=== PATIENT | female | born 1955 | race African-American/Black ===

== ENCOUNTER 2019-03-03 03:27 | Emergency (ER) | payer MEDICARE ==
[~2019-03-03] VITALS: Ht 160 cm; Wt 68.5 kg
[~2019-03-03 03:27] MED LIST: ACET500T68 PO; ALBU2.5V8 INH; AMLO5TAB10 PO; ASPI-612 PO; BUDE0.5A NEB; CLON0.1T PO; DOCU-153 PO; ENOX40DI3 SQ; HYDR-2868 PO; HYDR12.58 PO; IPRA3AMP29 NEB; LISI10TA2 PO; LORA10CA PO; LOSA-73 PO; METO-239 PO; Nicotine 21MG TD; ONDA4TAB11 PO; ONDA4TAB12 PO; POLY17PO29 PO; PRED50TA PO
--- NOTE | 2019-03-03 03:39 | PHYS DOC ---
Past Medical History Past Medical History: Anxiety, COPD, Hypertension Additional Past Medical Histor: PTSD Past Surgical History: No Surgical History Alcohol Use: None Drug Use: None PERC Rule for PE PERC Rule for PE Response (Comments) Value Age > 50: Yes 1 HR > 100: Yes 1 Sa02 on room air <95%: No 0 Unilateral leg swelling: No 0 Hemoptysis: No 0 Recent surgery or trauma: No 0 Prior PE or DVT: No 0 Hormone use: No 0 Total 2 Adult General Chief Complaint Chief Complaint: WEAKNESS/GENERALIZED HPI HPI Patient is a 64 year old female who presents to the ER with complaints of generalized weakness and not feeling well. Patient was recently dc from [facility] 02/17 and dc from [facility] 03/02. Patient underlying history of a nxiety. She states she awoke from sleep/dream with SOB unable to calm herself down. Patient denies chest pain however complains of SOB. She denies fever, nausea, vomiting, headache or visual changes. BP in the 200's/111 at this time. Nothing makes her symptoms better, nothing makes her symptoms worse. EKG - sinus tachycardia. Records reviewed from recent hospitalization: Ms Montelongo is a 64 yo female w/ PMHx COPD, anxiety, HTN who p/w blood pressure 220s over 110s at the snf. She was found with elevated troponin of 0.051 and potassium of 2.8 and very anxious as well as confused. EKG revealed sinus tachycardia. CXR concerning for right upper lung nodular opacity. She had a recent admission for COPD and pneumonia she also had hypertensive urgency on that admission she did have improvement with antihypertensive she had a renal artery ultrasound that showed no renal artery stenosis she also a 24- hour metanephrines within the reference range. ACTH was low and cortisol was normal. Discharged on 02/17/19 to SNF for rehabilitation after recent admission for COPD exacerbation. Seen by cardiology, recommended monitoring troponin, which decreased. Pulmonology consulted as well, CT chest ordered to better elucidate RUL infiltrate on CXR: 1. No correlate for the questioned abnormality at the right upper lobe on the same day radiographs. No lobar infiltrate or nodule is seen at this location. 2. Progression of mostly linear opacities within the bibasilar lower lobes and right middle lobe extending to the pleural margin most compatible with atelectasis. 3. Emphysematous changes of the lungs. No suspicious pulmonary nodule is seen however there is a 2.5 mm nodule within the far inferior right upper lobe approaching the fissure. This does not meet size criteria for dedicated follow- up however if there are risk factors for lung malignancy, optional CT in 12 months could be performed. 4. No interval change in the size or number of mediastinal and hilar lymph node s. Review of Systems Review of Systems Constitutional: Denies fever or chills [] Eyes: Denies change in visual acuity, redness, or eye pain [] HENT: Denies nasal congestion or sore throat [] Respiratory: SOB Cardiovascular: No additional information not addressed in HPI [] GI: Denies abdominal pain, nausea, vomiting, bloody stools or diarrhea [] : Denies dysuria or hematuria [] Musculoskeletal: Denies back pain or joint pain [] Integument: Denies rash or skin lesions [] Neurologic: Denies headache, focal weakness or sensory changes [] All other systems were reviewed and found to be within normal limits, except as documented in this note. Current Medications Current Medications Current Medications Medications (Trade) Dose Ordered Sig/Leno Start Time Stop Time Status Last Admin Dose Admin Labetalol HCl (Normodyne Iv Push) 10 mg 1X ONCE 03/03/19 04:15 03/03/19 04:16 DC 03/03/19 04:05 10 MG Sodium Chloride 1,000 ml @ 1,000 mls/hr 1X ONCE 03/03/19 04:00 03/03/19 05:00 DC 03/03/19 04:04 1,000 MLS/HR Allergies Allergies Allergies Coded Allergies Type Severity Reaction Last Updated Verified Penicillins Allergy Intermediate Swelling 11/09/15 Yes aspirin Allergy Intermediate Swelling 11/09/15 Yes azithromycin Allergy Intermediate Swelling 11/09/15 Yes Sulfa (Sulfonamide Antibiotics) Adverse Reaction Intermediate Swelling 11/09/15 Yes amoxicillin Adverse Reaction Intermediate Swelling 11/09/15 Yes Physical Exam Physical Exam Constitutional: Well developed, well nourished, no acute distress, non-toxic appearance. [] HENT: Normocephalic, atraumatic, bilateral external ears normal, oropharynx moist, no oral exudates, nose normal. [] Eyes: PERRLA, EOMI, conjunctiva normal, no discharge. [] Cardiovascular: tachycardia, no murmur [] Lungs & Thorax: Bilateral breath sounds clear to auscultation [] Abdomen: Bowel sounds normal, soft, no tenderness, no masses, no pulsatile masses. [] Skin: Warm, dry, no erythema, no rash. [] Back: No tenderness, no CVA tenderness. [] Extremities: No tenderness, no edema. [] Neurologic: Alert and oriented X 3, no focal deficits noted. [] Psychologic: Affect normal, judgement normal, mood normal. [] Current Patient Data Vital Signs Vital Signs Date Time Temp Pulse Resp B/P (MAP) Pulse Ox O2 Delivery O2 Flow Rate FiO2 03/03/19 04:18 90 10 95 03/03/19 04:05 192/100 03/03/19 03:30 98.3 Room Air 98.3 Lab Values Laboratory Tests Test 03/03/19 03:54 03/03/19 04:45 White Blood Count 5.5 x10^3/uL (4.0-11.0) Red Blood Count 6.03 x10^6/uL (3.50-5.40) H Hemoglobin 17.0 g/dL (12.0-15.5) H Hematocrit 52.0 % (36.0-47.0) H Mean Corpuscular Volume 86 fL (79-100) Mean Corpuscular Hemoglobin 28 pg (25-35) Mean Corpuscular Hemoglobin Concent 33 g/dL (31-37) Red Cell Distribution Width 14.8 % (11.5-14.5) H Platelet Count 324 x10^3/uL (140-400) Neutrophils (%) (Auto) 65 % (31-73) Lymphocytes (%) (Auto) 25 % (24-48) Monocytes (%) (Auto) 9 % (0-9) Eosinophils (%) (Auto) 1 % (0-3) Basophils (%) (Auto) 1 % (0-3) Neutrophils # (Auto) 3.6 x10^3/uL (1.8-7.7) Lymphocytes # (Auto) 1.4 x10^3/uL (1.0-4.8) Monocytes # (Auto) 0.5 x10^3/uL (0.0-1.1) Eosinophils # (Auto) 0.0 x10^3/uL (0.0-0.7) Basophils # (Auto) 0.0 x10^3/uL (0.0-0.2) D-Dimer (Tania) < 0.27 ug/mlFEU Sodium Level 138 mmol/L (136-145) Potassium Level 3.5 mmol/L (3.5-5.1) Chloride Level 100 mmol/L (98-107) Carbon Dioxide Level 24 mmol/L (21-32) Anion Gap 14 (6-14) Blood Urea Nitrogen 5 mg/dL (7-20) L Creatinine 1.0 mg/dL (0.6-1.0) Estimated GFR (Cockcroft-Gault) 68.0 BUN/Creatinine Ratio 5 (6-20) L Glucose Level 123 mg/dL (70-99) H Lactic Acid Level 1.2 mmol/L (0.4-2.0) Calcium Level 10.0 mg/dL (8.5-10.1) Magnesium Level 1.9 mg/dL (1.8-2.4) Total Bilirubin 1.5 mg/dL (0.2-1.0) H Aspartate Amino Transferase (AST) 37 U/L (15-37) Alanine Aminotransferase (ALT) 47 U/L (14-59) Alkaline Phosphatase 94 U/L (46-116) Total Protein 8.8 g/dL (6.4-8.2) H Albumin 3.8 g/dL (3.4-5.0) Albumin/Globulin Ratio 0.8 (1.0-1.7) L Urine Collection Type Unknown Urine Color Yellow Urine Clarity Clear Urine pH 7.0 Urine Specific [place] 1.010 Urine Protein Negative mg/dL (NEG-TRACE) Urine Glucose (UA) Negative mg/dL (NEG) Urine Ketones (Stick) 15 mg/dL (NEG) Urine Blood Negative (NEG) Urine Nitrite Negative (NEG) Urine Bilirubin Negative (NEG) Urine Urobilinogen Dipstick 1.0 mg/dL (0.2 mg/dL) Urine Leukocyte Esterase Negative (NEG) Urine RBC 0 /HPF (0-2) Urine WBC Occ /HPF (0-4) Urine Squamous Epithelial Cells Few /LPF Urine Bacteria 0 /HPF (0-FEW) Urine Mucus Slight /LPF Laboratory Tests 03/03/19 03:54 Laboratory Tests 03/03/19 03:54 EKG EKG EKG reviewed - tachycardia, normal axis, no evidence of STEMI appreciated, urgent EKG 2/2 rate[] Radiology/Procedures Radiology/Procedures wet read 0446 - Chest xray without evidence of acute consolidation appreciated, no pleural effusion[] Course & Med Decision Making Course & Med Decision Making Pertinent Labs and Imaging studies reviewed. (See chart for details) []Patient is a 64 year old female who presents to the ER with complaints of generalized weakness and not feeling well. Patient was recently dc from [facility] 02/17 and dc from [facility] 03/02. Patient underlying history of anxiety. She states she awoke from sleep/dream with SOB unable to calm herself down. Patient denies chest pain however complains of SOB. She denies fever, nausea, vomiting, headache or visual changes. BP in the 200's/111 at this time. Nothing makes her symptoms better, nothing makes her symptoms worse. EKG - sinus tachycardia. Labs/imaging reveiwed Lactic acid 1.2, ddimer < 0.27 CXR without acute process Patient improved after 10mg Labetalol IV x 1 DC home Reviewed from most recent hospital stay Ms Montelongo is a 64 yo female w/ PMHx COPD, anxiety, HTN who p/w blood pressure 220s over 110s at the snf. She was found with elevated troponin of 0.051 and potassium of 2.8 and very anxious as well as confused. EKG revealed sinus tachycardia. CXR concerning for right upper lung nodular opacity. She had a recent admission for COPD and pneumonia she also had hypertensive urgency on that admission she did have improvement with antihypertensive she had a renal artery ultrasound that showed no renal artery stenosis she also a 24- hour metanephrines within the reference range. ACTH was low and cortisol was normal. Discharged on 02/17/19 to SNF for rehabilitation after recent admission for COPD exacerbation. Seen by cardiology, recommended monitoring troponin, which decreased. Pulmonology consulted as well, CT chest ordered to better elucidate RUL infiltrate on CXR: Dragon Disclaimer Dragon Disclaimer This electronic medical record was generated, in whole or in part, using a voice recognition dictation system. Departure Departure Impression: Primary Impression: Accelerated hypertension Additional Impression: Anxiety Disposition: HOME, SELF-CARE Condition: IMPROVED Referrals: NO PCP (PCP) Patient Instructions: Anxiety and Panic Attacks, [id number], Hypertension Additional Instructions: Recommend follow up with PCP 3 - 5 days Return to the ER with worsening symptoms, intractable pain, fever, altered mental status Tylenol/Motrin as needed for pain Recommend filling prescriptions from recent hospital stay Problem Qualifiers DARIA HOLT MD Mar 03, 2019 03:39
[2019-03-03] MEDS ORDERED: IV NORMAL SALINE 1000ML BAG 1,000 ML IV ONE (04:00)
[2019-03-03 04:06] LABS: BASO % 1 % (0-3); EOS % 1 % (0-3); LYMPH # 1.4 x10^3/uL (1.0-4.8); LYMPH % 25 % (24-48); MEAN CORPUSCULAR HEMOGLOBIN 28 pg (25-35); MEAN CORPUSCULAR HGB CONC 33 g/dL (31-37); MEAN CORPUSCULAR VOLUME 86 fL (79-100); MONO # 0.5 x10^3/uL (0.0-1.1); MONO % 9 % (0-9); NEUT # 3.6 x10^3/uL (1.8-7.7); NEUT % 65 % (31-73); PLATELET COUNT 324 x10^3/uL (140-400); RED BLOOD COUNT 6.03 x10^6/uL (3.50-5.40); RED CELL DISTRIBUTION WIDTH 14.8 % (11.5-14.5); WHITE BLOOD COUNT 5.5 x10^3/uL (4.0-11.0)
[2019-03-03 04:10] LABS: POTASSIUM 3.5 mmol/L (3.5-5.1)
[2019-03-03 04:15] LABS: ALBUMIN 3.8 g/dL (3.4-5.0); ALBUMIN/GLOBULIN RATIO 0.8 (1.0-1.7); MAGNESIUM 1.9 mg/dL (1.8-2.4); TOTAL BILIRUBIN 1.5 mg/dL (0.2-1.0); TOTAL PROTEIN 8.8 g/dL (6.4-8.2)
[2019-03-03] MEDS ORDERED: LABETALOL 20 MG/4 ML DISP.SYRIN. IVP ONE (04:15)
[2019-03-03 04:53] LABS: BILIRUBIN,URINE NEGATIVE (NEG); CLARITY,URINE CLEAR; COLOR,URINE YELLOW; NITRITE,URINE NEGATIVE (NEG); PROTEIN,URINE NEGATIVE (NEG-TRACE)
[2019-03-03 04:59] LABS: BACTERIA,URINE 0 /HPF (0-FEW); RBC,URINE 0 /HPF (0-2); SQUAMOUS EPITHELIAL CELL,UR FEW /LPF; WBC,URINE OCC /HPF (0-4)
[2019-03-03 05:06] VITALS: BP 200/101
--- NOTE | 2019-03-03 06:32 | EKG ---
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
--- NOTE | 2019-03-03 07:43 | RAD ---
Study: CHEST AP ONLY Indication: Weakness. Comparison: 03/01/2019 Findings: Mild basilar volume loss. No newly seen lobar infiltrate, large effusion or pneumothorax. Unchanged cardiomediastinal silhouette and berenice. Impression: No newly identified abnormality. Mild basilar volume loss. Electronically signed by: KAROLINA TORRES MD (03/03/2019 7:41 AM) [facility]
[2019-03-03] MEDS ORDERED: BUSP5TAB PO (13:37)
[2019-03-03] MEDS ORDERED: METO-239 PO (15:22)
[2019-03-03] MEDS ORDERED: ALBU2.5V8 INH (15:22)
[2019-03-03] MEDS ORDERED: LOSA-73 PO (15:22)
[2019-03-03] MEDS ORDERED: AMLO5TAB10 PO (15:22)
[2019-03-03] MEDS ORDERED: HYDR-2868 PO (15:22)
== END 2019-03-03 05:12 | disposition home or self-care (01) ==
LOC: ER 03:27
DX: I10 Essential (primary) hypertension (principal); F41.9 Anxiety disorder, unspecified; R00.0 Tachycardia, unspecified; R53.1 Weakness; R06.02 Shortness of breath; J44.9 Chronic obstructive pulmonary disease, unspecified; F43.10 Post-traumatic stress disorder, unspecified; Z88.0 Allergy status to penicillin; Z88.1 Allergy status to other antibiotic agents; Z88.2 Allergy status to sulfonamides; Z88.6 Allergy status to analgesic agent
CPT/HCPCS: 36415; 71045; 80053; 81001; 83605; 83735; 85025; 85379; 93005; 96374; 99285; J3490; J7030

== ENCOUNTER 2019-03-04 04:06 | Emergency (ER) | payer MEDICARE, MEDICAID ==
[~2019-03-04] VITALS: Ht 162.6 cm; Wt 68.5 kg
[~2019-03-04 04:06] MED LIST changes: +BUSP5TAB PO
[2019-03-04 04:41] LABS: BASO % 0 % (0-3); EOS % 1 % (0-3); HEMATOCRIT 50.1 % (36.0-47.0); HEMOGLOBIN 16.5 g/dL (12.0-15.5); LYMPH # 0.6 x10^3/uL (1.0-4.8); LYMPH % 7 % (24-48); MEAN CORPUSCULAR HEMOGLOBIN 29 pg (25-35); MEAN CORPUSCULAR HGB CONC 33 g/dL (31-37); MEAN CORPUSCULAR VOLUME 88 fL (79-100); MONO # 0.2 x10^3/uL (0.0-1.1); MONO % 3 % (0-9); NEUT % 89 % (31-73); PLATELET COUNT 351 x10^3/uL (140-400); RED CELL DISTRIBUTION WIDTH 15.2 % (11.5-14.5); WHITE BLOOD COUNT 7.9 x10^3/uL (4.0-11.0)
--- NOTE | 2019-03-04 05:46 | PHYS DOC ---
Past Medical History Past Medical History: Anxiety, COPD, Hypertension Additional Past Medical Histor: PTSD Past Surgical History: No Surgical History Alcohol Use: None Drug Use: None Adult General Chief Complaint Chief Complaint: HYPERTENSION HPI HPI Patient is a 64 year old female with history of hypertension, anxiety, COPD and currently smoking who presents with complaining of elevation of blood pressure and shortness of breath. Patient states she had shortness of breath at 2300 last night and took albuterol inhaler and because of palpitation check her blood pressure that was more than 200 in several checking. Patient had several emergency room visits visits and hospitalization recently and states she was advised to come to hospital if the blood pressure more than 200. Patient denies headache, nausea and vomiting, blurred vision, focal neuro deficit, fever and chills. Review of Systems Review of Systems Constitutional: Denies fever or chills [] Eyes: Denies change in visual acuity, redness, or eye pain [] HENT: Denies nasal congestion or sore throat [] Respiratory: Reports cough and shortness of breath Cardiovascular: No additional information not addressed in HPI [] GI: Denies abdominal pain, nausea, vomiting, bloody stools or diarrhea [] : Denies dysuria or hematuria [] Musculoskeletal: Denies back pain or joint pain [] Integument: Denies rash or skin lesions [] Neurologic: Denies headache, focal weakness or sensory changes [] Endocrine: Denies polyuria or polydipsia [] All other systems were reviewed and found to be within normal limits, except as documented in this note. Current Medications Current Medications Current Medications Medications (Trade) Dose Ordered Sig/Leno Start Time Stop Time Status Last Admin Dose Admin Lorazepam (Ativan Inj) 1 mg 1X ONCE 03/04/19 04:45 03/04/19 05:06 DC 03/04/19 05:10 1 MG Allergies Allergies Allergies Coded Allergies Type Severity Reaction Last Updated Verified Penicillins Allergy Intermediate Swelling 11/09/15 Yes aspirin Allergy Intermediate Swelling 11/09/15 Yes azithromycin Allergy Intermediate Swelling 11/09/15 Yes Sulfa (Sulfonamide Antibiotics) Adverse Reaction Intermediate Swelling 11/09/15 Yes amoxicillin Adverse Reaction Intermediate Swelling 11/09/15 Yes Physical Exam Physical Exam Constitutional: Well developed, well nourished, mild distress, non-toxic appearance. [] HENT: Normocephalic, atraumatic. Eyes: PERRLA, EOMI, conjunctiva normal, no discharge. [] Neck: Normal range of motion, no tenderness, supple, no stridor. [] Cardiovascular: Tachycardia, no murmur [] Lungs & Thorax: Bilateral breath sounds clear to auscultation [] Abdomen: Bowel sounds normal, soft, no tenderness, no masses, no pulsatile masses. [] Skin: Warm, dry, no erythema, no rash. [] Back: No tenderness, no CVA tenderness. [] Extremities: No tenderness, no cyanosis, no clubbing, ROM intact, no edema. [] Neurologic: Alert and oriented X 3, no focal deficits noted. [] Psychologic: Affect anxious, judgement normal, mood normal. [] Current Patient Data Vital Signs Vital Signs Date Time Temp Pulse Resp B/P (MAP) Pulse Ox O2 Delivery O2 Flow Rate FiO2 03/04/19 04:24 97.6 98 16 162/81 (108) 96 Room Air 97.6 Lab Values Laboratory Tests Test 03/04/19 04:32 White Blood Count 7.9 x10^3/uL (4.0-11.0) Red Blood Count 5.70 x10^6/uL (3.50-5.40) H Hemoglobin 16.5 g/dL (12.0-15.5) H Hematocrit 50.1 % (36.0-47.0) H Mean Corpuscular Volume 88 fL (79-100) Mean Corpuscular Hemoglobin 29 pg (25-35) Mean Corpuscular Hemoglobin Concent 33 g/dL (31-37) Red Cell Distribution Width 15.2 % (11.5-14.5) H Platelet Count 351 x10^3/uL (140-400) Neutrophils (%) (Auto) 89 % (31-73) H Lymphocytes (%) (Auto) 7 % (24-48) L Monocytes (%) (Auto) 3 % (0-9) Eosinophils (%) (Auto) 1 % (0-3) Basophils (%) (Auto) 0 % (0-3) Neutrophils # (Auto) 7.0 x10^3/uL (1.8-7.7) Lymphocytes # (Auto) 0.6 x10^3/uL (1.0-4.8) L Monocytes # (Auto) 0.2 x10^3/uL (0.0-1.1) Eosinophils # (Auto) 0.0 x10^3/uL (0.0-0.7) Basophils # (Auto) 0.0 x10^3/uL (0.0-0.2) Platelet Estimate Pending Laboratory Tests 03/04/19 04:32 EKG EKG EKG interpreted by me. EKG at 0434 showed sinus tachycardia at rate of 107, biatrial enlargement, LVH with repolarization abnormality, no acute ST and T-w ave elevation. Radiology/Procedures Radiology/Procedures Chest x-ray interpreted by me and did not show acute finding[] Course & Med Decision Making Course & Med Decision Making Pertinent Labs and Imaging studies reviewed. (See chart for details) Evaluation of patient in ER showed 64-year-old female patient with history of frequent percent emergency room visits and hospitalization with complaining of elevation of blood pressure and shortness of breath. Patient was anxious at arrival to ER with tachycardia and blood pressure of 160s over 90s that gradually decreased to 128/82 and heart rate of 95. Patient was anxious but refused to take any treatment. Patient has several blood drawn with hemolyzed lab and refused to have more blood test. Patient was advised to continue her anxiety and blood pressure medication and follow up with her primary care physician. Dragon Disclaimer Dragon Disclaimer This electronic medical record was generated, in whole or in part, using a voice recognition dictation system. Departure Departure Impression: Primary Impression: Anxiety attack Additional Impressions: Accelerated hypertension Smoking addiction Disposition: HOME, SELF-CARE (at 0 544) Condition: IMPROVED Referrals: NO PCP (PCP) Patient Instructions: Anxiety and Panic Attacks, Form - Blood Pressure Record Sheet, How to Take Your Blood Pressure, [id number], Managing Your High Blood Pressure Additional Instructions: Drink plenty of liquids Follow-up with your primary care physician in 3-5 days Return to ER if not getting better Continue current medication Problem Qualifiers MARLO WINKLER MD Mar 04, 2019 05:46
[2019-03-04 05:48] VITALS: BP 121/64
[2019-03-04 06:29] LABS: % LYMPHS 7 % (24-48); % MONOS 2 % (0-10); % SEGS 91 % (35-66); ANISOCYTOSIS SLIGHT; PLT ESTIMATE ADEQUATE (ADEQUATE)
--- NOTE | 2019-03-04 08:15 | RAD ---
PORTABLE CHEST 1V INDICATION: Dyspnea. COMPARISON STUDY: Radiograph 03/03/2019, CT 03/01/2019. FINDINGS: Lungs: Normal lung volume. Stable mild bibasilar subsegmental atelectasis. The tracheobronchial tree and hilar structures are normal. Pleura: No pleural effusion or pneumothorax. Heart and Mediastinum: Stable cardiomediastinal silhouette and great vessels. IMPRESSION: Stable mild bibasilar subsegmental atelectasis. Electronically signed by: Steve Garcia MD (03/04/2019 8:12 AM) [facility]
--- NOTE | 2019-03-05 10:10 | EKG ---
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
== END 2019-03-04 05:50 | disposition home or self-care (01) ==
LOC: ER 04:06
DX: I10 Essential (primary) hypertension (principal); F41.9 Anxiety disorder, unspecified; R06.02 Shortness of breath; F17.200 Nicotine dependence, unspecified, uncomplicated; J44.9 Chronic obstructive pulmonary disease, unspecified; F43.10 Post-traumatic stress disorder, unspecified; Z88.0 Allergy status to penicillin; Z88.1 Allergy status to other antibiotic agents; Z88.2 Allergy status to sulfonamides; Z88.6 Allergy status to analgesic agent
CPT/HCPCS: 36415; 71045; 85007; 85025; 93005; 96374; 99285; J2060

== ENCOUNTER 2019-03-15 12:33 | Emergency (ER) | payer MEDICARE, MEDICAID ==
[~2019-03-15] VITALS: Ht 160 cm; Wt 64.4 kg
[2019-03-15] MEDS ORDERED: ALPRAZolam 0.5 MG TABLET ONE (12:49)
[2019-03-15] MEDS ORDERED: ALPRAZolam 0.5 MG TABLET PO ONE (13:15)
[2019-03-15] MEDS ORDERED: ALPR0.5T PO (14:23)
--- NOTE | 2019-03-15 14:23 | PHYS DOC ---
Past Medical History Past Medical History: Anxiety, COPD, Hypertension Additional Past Medical Histor: PTSD Past Surgical History: Other Additional Past Surgical Histo: RIGHT SHOULDER Alcohol Use: None Drug Use: None Adult General Chief Complaint Chief Complaint: ANXIETY/PANIC ATTACK HPI HPI Patient is a 64 year old female patient with history of anxiety who presents EMS with complaining of anxiety. Patient states tried to stop smoking cigarettes and using medication given by her primary care physician but it did make her more anxious. Patient complaining of increasing anxiety since last night without suicidal and homicidal ideation, hallucinations focal neuro deficit. Patient states she does not Anxiety medication at home. Review of Systems Review of Systems Constitutional: Denies fever or chills [] Eyes: Denies change in visual acuity, redness, or eye pain [] HENT: Denies nasal congestion or sore throat [] Respiratory: Denies cough or shortness of breath [] Cardiovascular: No additional information not addressed in HPI [] GI: Denies abdominal pain, nausea, vomiting, bloody stools or diarrhea [] : Denies dysuria or hematuria [] Musculoskeletal: Denies back pain or joint pain [] Integument: Denies rash or skin lesions [] Neurologic: Denies headache, focal weakness or sensory changes [] Endocrine: Denies polyuria or polydipsia [] All other systems were reviewed and found to be within normal limits, except as documented in this note. Current Medications Current Medications Current Medications Medications (Trade) Dose Ordered Sig/Leno Start Time Stop Time Status Last Admin Dose Admin Alprazolam (Xanax) 0.5 mg STK-MED ONCE 03/15/19 12:49 03/15/19 12:49 DC Allergies Allergies Allergies Coded Allergies Type Severity Reaction Last Updated Verified Penicillins Allergy Intermediate Swelling 11/09/15 Yes aspirin Allergy Intermediate Swelling 11/09/15 Yes azithromycin Allergy Intermediate Swelling 11/09/15 Yes Sulfa (Sulfonamide Antibiotics) Adverse Reaction Intermediate Swelling 11/09/15 Yes amoxicillin Adverse Reaction Intermediate Swelling 11/09/15 Yes Physical Exam Physical Exam Constitutional: Wellnourished, mild distress, non-toxic appearance. [] HENT: Normocephalic, atraumatic. Eyes: PERRLA, EOMI, conjunctiva normal, no discharge. [] Neck: Normal range of motion, no tenderness, supple, no stridor. [] Cardiovascular: Tachycardia, no murmur [] Lungs & Thorax: Bilateral breath sounds clear to auscultation [] Back: No tenderness, no CVA tenderness. [] Extremities: No tenderness, no cyanosis, no clubbing, ROM intact, no edema. [] Neurologic: Alert and oriented X 3, no focal deficits noted. [] Psychologic: Affect anxious, judgement normal, mood normal. [] Current Patient Data Vital Signs Vital Signs Date Time Temp Pulse Resp B/P (MAP) Pulse Ox O2 Delivery O2 Flow Rate FiO2 03/15/19 14:35 108 18 127/67 (87) 94 Room Air 03/15/19 12:45 97.8 97.8 EKG EKG [] Radiology/Procedures Radiology/Procedures [] Course & Med Decision Making Course & Med Decision Making Evaluation of patient in ER showed 64-year-old patient with history of anxiety brought in by EMS because of anxiety. Patient had tachycardia and anxiety at arrival to ER that improved with oral Xanax. Patient denies suicidal and homici chris ideation. Prescription for Xanax #6 was given and patient with her primary care physician. Dragon Disclaimer Dragon Disclaimer This electronic medical record was generated, in whole or in part, using a voice recognition dictation system. Departure Departure Impression: Primary Impression: Panic attack Disposition: HOME, SELF-CARE (at 1421) Condition: IMPROVED Referrals: GRIFFIN MCCALL MD (PCP) Patient Instructions: Anxiety and Panic Attacks Additional Instructions: Drink plenty of liquids Follow-up with your primary care physician in 3-5 days Return to ER if not getting better Scripts Alprazolam (XANAX) 0.5 Mg Tablet 1 TAB PO TID PRN for ANXIETY, #6 TAB Prov: MARLO WINKLER MD 03/15/19 MARLO WINKLER MD Mar 15, 2019 14:23
[2019-03-15 14:35] VITALS: BP 127/67
== END 2019-03-15 14:20 | disposition home or self-care (01) ==
LOC: ER 12:33
DX: F41.9 Anxiety disorder, unspecified (principal); J44.9 Chronic obstructive pulmonary disease, unspecified; I10 Essential (primary) hypertension; F43.10 Post-traumatic stress disorder, unspecified; F17.210 Nicotine dependence, cigarettes, uncomplicated; Z88.0 Allergy status to penicillin; Z88.1 Allergy status to other antibiotic agents; Z88.2 Allergy status to sulfonamides; Z88.6 Allergy status to analgesic agent
CPT/HCPCS: 99284

== ENCOUNTER 2019-04-28 04:09 | Emergency (ER) | payer MEDICARE, MEDICAID ==
[~2019-04-28] VITALS: Ht 157.5 cm; Wt 80.0 kg
[2019-04-28 04:09] VITALS: BP 142/99
[~2019-04-28 04:09] MED LIST changes: +ALPR0.5T PO; +ONDA-84 PO; -ONDA4TAB11 PO
--- NOTE | 2019-04-28 04:24 | PHYS DOC ---
Past Medical History Past Medical History: Anxiety, COPD, Hypertension Additional Past Medical Histor: PTSD Past Surgical History: Other Additional Past Surgical Histo: RIGHT SHOULDER Alcohol Use: None Drug Use: None Adult General Chief Complaint Chief Complaint: HYPERTENSION HPI HPI Patient is a 64-year-old female who presents with report of concern of elevated blood pressure. Patient was at the [facility] and reportedly one $600 and she became really excited and was worried that her blood pressure gone up because she started to feel little bit lightheaded. Upon patient arrival, patient's blood pressure is 142/99 and she states that she feels much better. Patient indicates that she does not want to have workup completed in the emergency room at this time. She states that she would like to go home. Patient denies any chest pain or shortness breath.[] Review of Systems Review of Systems Constitutional: Denies fever or chills [] Respiratory: Denies cough or shortness of breath [] Cardiovascular: No additional information not addressed in HPI [] GI: Denies abdominal pain [] Integument: Denies rash or skin lesions [] Neurologic: Denies headache, focal weakness or sensory changes [] Allergies Allergies Allergies Coded Allergies Type Severity Reaction Last Updated Verified Penicillins Allergy Intermediate Swelling 11/09/15 Yes aspirin Allergy Intermediate Swelling 11/09/15 Yes azithromycin Allergy Intermediate Swelling 11/09/15 Yes Sulfa (Sulfonamide Antibiotics) Adverse Reaction Intermediate Swelling 11/09/15 Yes amoxicillin Adverse Reaction Intermediate Swelling 11/09/15 Yes Physical Exam Physical Exam Constitutional: Well developed, well nourished, no acute distress, non-toxic appearance. [] Neck: Normal range of motion, no tenderness, supple, no stridor. [] Cardiovascular: Regular rate and rhythm[] Lungs & Thorax: Bilateral breath sounds clear to auscultation [] Neurologic: Alert and oriented X 3, no focal deficits noted. [] EKG EKG [] Radiology/Procedures Radiology/Procedures [] Course & Med Decision Making Course & Med Decision Making Pertinent Labs and Imaging studies reviewed. (See chart for details) Patient arrived via EMS and moved patient room upon arrival. After vital signs obtained, vital signs were reviewed with patient and patient was offered a workup to include blood work and EKG. Patient indicated that since her blood pressure is down, she would just like to be discharged. Dragon Disclaimer Dragon Disclaimer This electronic medical record was generated, in whole or in part, using a voice recognition dictation system. Departure Departure Impression: Primary Impression: Essential hypertension Disposition: HOME, SELF-CARE Condition: STABLE Referrals: GRIFFIN MCCALL MD (PCP) Patient Instructions: Hypertension NARCISA ALTMAN Jr., DO Apr 28, 2019 04:24
== END 2019-04-28 04:30 | disposition home or self-care (01) ==
LOC: ER 04:09
DX: I10 Essential (primary) hypertension (principal); R42 Dizziness and giddiness; J44.9 Chronic obstructive pulmonary disease, unspecified; F41.9 Anxiety disorder, unspecified; F43.10 Post-traumatic stress disorder, unspecified; Z88.0 Allergy status to penicillin; Z88.1 Allergy status to other antibiotic agents; Z88.2 Allergy status to sulfonamides; Z88.6 Allergy status to analgesic agent
CPT/HCPCS: 99283

== ENCOUNTER 2019-05-14 13:34 | Emergency (ER) | payer MEDICARE, MEDICAID ==
[~2019-05-14] VITALS: Ht 165.1 cm; Wt 70.4 kg
[2019-05-14 14:22] LABS: BASO % 1 % (0-3); EOS % 1 % (0-3); HEMATOCRIT 45.3 % (36.0-47.0); HEMOGLOBIN 14.9 g/dL (12.0-15.5); LYMPH # 1.2 x10^3/uL (1.0-4.8); LYMPH % 23 % (24-48); MEAN CORPUSCULAR HEMOGLOBIN 29 pg (25-35); MEAN CORPUSCULAR HGB CONC 33 g/dL (31-37); MEAN CORPUSCULAR VOLUME 88 fL (79-100); MONO # 0.3 x10^3/uL (0.0-1.1); MONO % 6 % (0-9); NEUT # 3.6 x10^3/uL (1.8-7.7); NEUT % 70 % (31-73); PLATELET COUNT 202 x10^3/uL (140-400); RED BLOOD COUNT 5.18 x10^6/uL (3.50-5.40); RED CELL DISTRIBUTION WIDTH 15.5 % (11.5-14.5); WHITE BLOOD COUNT 5.1 x10^3/uL (4.0-11.0)
[2019-05-14 14:31] LABS: CALCIUM 9.6 mg/dL (8.5-10.1); CREATININE 0.9 mg/dL (0.6-1.0); GFR 76.8; POTASSIUM 3.6 mmol/L (3.5-5.1); PROTHROMBIN TIME PATIENT 12.2 SEC (11.7-14.0)
--- NOTE | 2019-05-14 14:31 | RAD ---
PORTABLE CHEST 1V History: Chest pain Comparison: March 04, 2019 Findings: No consolidation or pleural effusion. Normal heart size. No pneumothorax. Impression: 1. No acute cardiopulmonary process. Electronically signed by: Ovidio Crisostomo DO (05/14/2019 2:27 PM) [id number]
[2019-05-14 14:38] LABS: ALBUMIN 3.4 g/dL (3.4-5.0); ALBUMIN/GLOBULIN RATIO 0.9 (1.0-1.7); MAGNESIUM 1.8 mg/dL (1.8-2.4); TOTAL BILIRUBIN 0.7 mg/dL (0.2-1.0); TOTAL PROTEIN 7.2 g/dL (6.4-8.2)
[2019-05-14 15:17] VITALS: BP 144/83
--- NOTE | 2019-05-14 15:46 | PHYS DOC ---
Past Medical History Past Medical History: Anxiety, COPD, Hypertension, Pneumonia Additional Past Medical Histor: PTSD Past Surgical History: Other Additional Past Surgical Histo: RIGHT SHOULDER Smoking Status: Current Every Day Smoker Alcohol Use: None Drug Use: None Adult General Chief Complaint Chief Complaint: Palpitations [facility] HPI Patient is a 64 year old female with history of anxiety, PTSD, hypertension, COPD who presents with complaining of heart racing. Patient states she woke up this morning and had palpitation, shortness of breath, numbness of her hands and her legs, hyperventilation and dizziness without chest pain that improved after taking her night medication that she missed last night. Patient states she called 911 but at arrival of EMS she felt better. Patient states she had another episode of palpitation and anxiety and decided to come to ER. Patient denies using drugs and alcohol and states she smokes 5 cigarettes a day. Patient has had frequent emergency room visits. Review of Systems Review of Systems Constitutional: Denies fever or chills [] Eyes: Denies change in visual acuity, redness, or eye pain [] HENT: Denies nasal congestion or sore throat [] Respiratory: Denies cough, reports shortness of breath [] Cardiovascular: No additional information not addressed in HPI [] GI: Denies abdominal pain, nausea, vomiting, bloody stools or diarrhea [] : Denies dysuria or hematuria [] Musculoskeletal: Denies back pain or joint pain [] Integument: Denies rash or skin lesions [] Neurologic: Denies headache, focal weakness or sensory changes [] Endocrine: Denies polyuria or polydipsia [] All other systems were reviewed and found to be within normal limits, except as documented in this note. Allergies Allergies Allergies Coded Allergies Type Severity Reaction Last Updated Verified Penicillins Allergy Intermediate Swelling 11/09/15 Yes aspirin Allergy Intermediate Swelling 11/09/15 Yes azithromycin Allergy Intermediate Swelling 11/09/15 Yes Sulfa (Sulfonamide Antibiotics) Adverse Reaction Intermediate Swelling 11/09/15 Yes amoxicillin Adverse Reaction Intermediate Swelling 11/09/15 Yes Physical Exam Physical Exam Constitutional: Well nourished, mild distress, non-toxic appearance. [] HENT: Normocephalic, atraumatic. Eyes: PERRLA, EOMI, conjunctiva normal, no discharge. [] Neck: Normal range of motion, no tenderness, supple, no stridor. [] Cardiovascular:Heart rate regular rhythm, no murmur [] Lungs & Thorax: Bilateral breath sounds clear to auscultation [] Abdomen: Bowel sounds normal, soft, no tenderness, no masses, no pulsatile masses. [] Skin: Warm, dry, no erythema, no rash. [] Back: No tenderness, no CVA tenderness. [] Extremities: No tenderness, no cyanosis, no clubbing, ROM intact, no edema. [] Neurologic: Alert and oriented X 3, no focal deficits noted. [] Psychologic: Affect anxious,, judgement normal, mood normal. [] Current Patient Data Vital Signs Vital Signs Date Time Temp Pulse Resp B/P (MAP) Pulse Ox O2 Delivery O2 Flow Rate FiO2 05/14/19 13:52 98.7 100 16 166/92 (116) 98 Room Air 98.7 Lab Values Laboratory Tests Test 05/14/19 14:15 White Blood Count 5.1 x10^3/uL (4.0-11.0) Red Blood Count 5.18 x10^6/uL (3.50-5.40) Hemoglobin 14.9 g/dL (12.0-15.5) Hematocrit 45.3 % (36.0-47.0) Mean Corpuscular Volume 88 fL (79-100) Mean Corpuscular Hemoglobin 29 pg (25-35) Mean Corpuscular Hemoglobin Concent 33 g/dL (31-37) Red Cell Distribution Width 15.5 % (11.5-14.5) H Platelet Count 202 x10^3/uL (140-400) Neutrophils (%) (Auto) 70 % (31-73) Lymphocytes (%) (Auto) 23 % (24-48) L Monocytes (%) (Auto) 6 % (0-9) Eosinophils (%) (Auto) 1 % (0-3) Basophils (%) (Auto) 1 % (0-3) Neutrophils # (Auto) 3.6 x10^3/uL (1.8-7.7) Lymphocytes # (Auto) 1.2 x10^3/uL (1.0-4.8) Monocytes # (Auto) 0.3 x10^3/uL (0.0-1.1) Eosinophils # (Auto) 0.0 x10^3/uL (0.0-0.7) Basophils # (Auto) 0.0 x10^3/uL (0.0-0.2) Prothrombin Time 12.2 SEC (11.7-14.0) Prothrombin Time INR 0.9 (0.8-1.1) Sodium Level 142 mmol/L (136-145) Potassium Level 3.6 mmol/L (3.5-5.1) Chloride Level 104 mmol/L (98-107) Carbon Dioxide Level 27 mmol/L (21-32) Anion Gap 11 (6-14) Blood Urea Nitrogen 12 mg/dL (7-20) Creatinine 0.9 mg/dL (0.6-1.0) Estimated GFR (Cockcroft-Gault) 76.8 BUN/Creatinine Ratio 13 (6-20) Glucose Level 107 mg/dL (70-99) H Calcium Level 9.6 mg/dL (8.5-10.1) Magnesium Level 1.8 mg/dL (1.8-2.4) Total Bilirubin 0.7 mg/dL (0.2-1.0) Aspartate Amino Transferase (AST) 17 U/L (15-37) Alanine Aminotransferase (ALT) 13 U/L (14-59) L Alkaline Phosphatase 96 U/L (46-116) Creatine Kinase 96 U/L (26-192) Troponin I Quantitative < 0.017 ng/mL (0.000-0.055) BJ-Ize-Z-Type Natriuretic Peptide 68 pg/mL (0-124) Total Protein 7.2 g/dL (6.4-8.2) Albumin 3.4 g/dL (3.4-5.0) Albumin/Globulin Ratio 0.9 (1.0-1.7) L Lipase 181 U/L (73-393) Thyroid Stimulating Hormone (TSH) 1.070 uIU/mL (0.358-3.74) Laboratory Tests 05/14/19 14:15 Laboratory Tests 05/14/19 14:15 EKG EKG EKG interpreted by me. EKG at 1345 showed normal sinus rhythm at rate of 100, normal MD and QT intervals, left atrial abnormality, no acute ST and T-wave elevation. Radiology/Procedures Radiology/Procedures [facility] [address] [place] [address] IMAGING REPORT Signed PATIENT: KM HILL DACCOUNT: [id number] : 1955 LOCATION: ER AGE: 64 SEX: F EXAM STATUS: PRE ER ORD. PHYSICIAN: MARLO WINKLER MD REASON: chest pain PROCEDURE: PORTABLE CHEST 1V PORTABLE CHEST 1V History: Chest pain Comparison: March 04, 2019 Findings: No consolidation or pleural effusion. Normal heart size. No pneumothorax. Impression: 1. No acute cardiopulmonary process. Electronically signed by: Ovidio Crisostomo DO (05/14/2019 2:27 PM) [id number] DICTATED and SIGNED BY: OVIDIO CRISOSTOMO DO DATE: 05/14/191426 Course & Med Decision Making Course & Med Decision Making Pertinent Labs and Imaging studies reviewed. (See chart for details) Evaluation of patient in ER showed 64-year-old male patient with history of anxiety and PTSD and frequent emergency room visits with complaining of episodes of palpitation and panic attacks. Patient had unremarkable physical exam except for anxiety. EKG and labs was unremarkable. Patient informed about this result and was advised to follow-up with her primary care physician. I've spoken with the patient and/or caregivers. I've explained the patient's condition, diagnosis and treatment plan based on information available to me at this time. I've answered the patient's and/or caregivers questions and addressed any concerns. The patient and/or caregivers have a good understanding the patient's diagnosis, condition and treatment plan as can be expected at this point. Vital signs have been stabilized. The patient's condition is stable for discharge from the emergency department. The patient will pursue further outpatient evaluation with her primary care provider or other designated consulting physician as outlined in the discharge instructions. Patient and/or caregivers are agreeable to this plan of care and follow-up instructions have been explained in detail. The patient and/or caregiv ers have received these instructions in written format and expressed understanding of these discharge instructions. The patient and her caregivers are aware that if any significant change in condition or worsening of symptoms should prompt him to immediately return to this of the closest emergency d epartment. If an emergent department is not readily available I would encourage him to call 911. Howard Disclaimer Howard Disclaimer This electronic medical record was generated, in whole or in part, using a voice recognition dictation system. Departure Departure Impression: Primary Impression: Panic attack Additional Impression: Anxiety about health Disposition: HOME, SELF-CARE (at 1545) Condition: IMPROVED Referrals: GRIFFIN MCCALL MD (PCP) Patient Instructions: Anxiety and Panic Attacks Additional Instructions: Drink plenty of liquids Follow-up with your primary care physician in 3-5 days Return to ER if not getting better Continue her home medication Thank you for visiting [facility]. We appreciate you trusting us with your care. If any additional problems come up don't hesitate to return to visit us. Please follow up with your primary care provider so they can plan additional care if needed and know about the problem that you had. If symptoms worsen come back to the Emergency Department. Any concerning symptoms that start such as chest pain, shortness of air, weakness or numbness on one side of the body, running high fevers or any other concerning symptoms return to the ER. Problem Qualifiers MARLO WINKLER MD May 14, 2019 15:46
--- NOTE | 2019-05-17 06:08 | EKG ---
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
== END 2019-05-14 15:57 | disposition home or self-care (01) ==
LOC: ER 13:34
DX: F41.9 Anxiety disorder, unspecified (principal); R06.02 Shortness of breath; R00.2 Palpitations; R42 Dizziness and giddiness; R06.4 Hyperventilation; J44.9 Chronic obstructive pulmonary disease, unspecified; I10 Essential (primary) hypertension; F43.10 Post-traumatic stress disorder, unspecified; F17.210 Nicotine dependence, cigarettes, uncomplicated; Z98.890 Other specified postprocedural states; Z88.0 Allergy status to penicillin; Z88.1 Allergy status to other antibiotic agents; Z88.2 Allergy status to sulfonamides; Z88.6 Allergy status to analgesic agent
CPT/HCPCS: 36415; 71045; 80053; 82550; 83690; 83735; 83880; 84443; 84484; 85025; 85610; 93005; 99285

== ENCOUNTER 2019-06-13 04:34 | Emergency (ER) | payer MEDICARE, MEDICAID ==
[~2019-06-13] VITALS: Ht 177.8 cm; Wt 68.0 kg
[2019-06-13 05:07] LABS: BILIRUBIN,URINE NEGATIVE (NEG); CLARITY,URINE CLEAR; COLOR,URINE YELLOW; NITRITE,URINE NEGATIVE (NEG); PROTEIN,URINE NEGATIVE (NEG-TRACE); UROBILINOGEN,URINE 0.2 mg/dL (0.2 mg/dL)
[2019-06-13 05:14] LABS: BARBITURATES NEG (NEG); BENZODIAZEPINES NEG (NEG); CANNABINOIDS NEG (NEG); COCAINE NEG (NEG); METHADONE NEG (NEG); OPIATES NEG (NEG); PHENCYCLIDINE NEG (NEG)
[2019-06-13 05:15] LABS: BASO % 1 % (0-3); EOS % 1 % (0-3); HEMATOCRIT 45.3 % (36.0-47.0); HEMOGLOBIN 15.1 g/dL (12.0-15.5); LYMPH # 1.2 x10^3/uL (1.0-4.8); LYMPH % 21 % (24-48); MEAN CORPUSCULAR HEMOGLOBIN 30 pg (25-35); MEAN CORPUSCULAR HGB CONC 34 g/dL (31-37); MEAN CORPUSCULAR VOLUME 88 fL (79-100); MONO # 0.5 x10^3/uL (0.0-1.1); MONO % 9 % (0-9); NEUT # 3.9 x10^3/uL (1.8-7.7); NEUT % 68 % (31-73); PLATELET COUNT 224 x10^3/uL (140-400); RED BLOOD COUNT 5.13 x10^6/uL (3.50-5.40); RED CELL DISTRIBUTION WIDTH 14.8 % (11.5-14.5); WHITE BLOOD COUNT 5.7 x10^3/uL (4.0-11.0)
[2019-06-13 05:15] LABS: AMPHETAMINE/METHAMPHETAMINE NEG (NEG)
[2019-06-13 05:20] LABS: SQUAMOUS EPITHELIAL CELL,UR FEW /LPF
[2019-06-13 05:21] LABS: BACTERIA,URINE 0 /HPF (0-FEW); RBC,URINE 0 /HPF (0-2)
[2019-06-13 05:23] LABS: CALCIUM 9.8 mg/dL (8.5-10.1); POTASSIUM 3.1 mmol/L (3.5-5.1)
[2019-06-13 05:29] LABS: PROTHROMBIN TIME PATIENT 12.1 SEC (11.7-14.0)
[2019-06-13 05:30] LABS: ALBUMIN 3.8 g/dL (3.4-5.0); ALBUMIN/GLOBULIN RATIO 1.1 (1.0-1.7); MAGNESIUM 1.6 mg/dL (1.8-2.4); TOTAL BILIRUBIN 0.5 mg/dL (0.2-1.0); TOTAL PROTEIN 7.3 g/dL (6.4-8.2)
[2019-06-13] MEDS ORDERED: POTASSIUM CHLORIDE 20 MEQ TABLET.ER. PO ONE (05:30)
--- NOTE | 2019-06-13 05:38 | EKG ---
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
[2019-06-13] MEDS ORDERED: MAGNESIUM SULFATE 2GM 50 ML IV ONE ×2 (05:50→06:00)
--- NOTE | 2019-06-13 06:11 | PHYS DOC ---
Past Medical History Past Medical History: Anxiety, COPD, Hypertension, Pneumonia Additional Past Medical Histor: PTSD Past Surgical History: Other Additional Past Surgical Histo: RIGHT SHOULDER Smoking Status: Current Every Day Smoker Alcohol Use: None Drug Use: None Adult General Chief Complaint Chief Complaint: ANXIETY/PANIC ATTACK [facility] HPI Patient is a 64 year old female who was brought here by EMS from her home due to anxiety attack. Patient has a history of anxiety depression, she is on BuSpar. Patient ran out of medication, she was able to get the medication yesterday but she did not take it in the morning. Last night before to go to [facility] SHE WAS able to get the medication and took it at 7 PM, she was not able to sleep. Patient had an argument with her boyfriend in the middle the night, became very upset. She could not sleep. She is then felt like her heart was racing, so she checked her blood pressure her heart rate and it was elevated to 130 beats per minute so she called EMS to take here for evaluation. Patient has history of hypertension, COPD, on oxygen at home. Patient continues to smoke. Patient denies any chest pain, no trouble breathing, no abdominal pain, no nausea vomiting. Patient denies suicidal ideation, denies homicidal ideation. Review of Systems Review of Systems Constitutional: Denies fever or chills [] Eyes: Denies change in visual acuity, redness, or eye pain [] HENT: Denies nasal congestion or sore throat [] Respiratory: Denies cough or shortness of breath [] Cardiovascular: No additional information not addressed in HPI [] GI: Denies abdominal pain, nausea, vomiting, bloody stools or diarrhea [] : Denies dysuria or hematuria [] Musculoskeletal: Denies back pain or joint pain [] Integument: Denies rash or skin lesions [] Neurologic: Denies headache, focal weakness or sensory changes [] Endocrine: Denies polyuria or polydipsia [] All other systems were reviewed and found to be within normal limits, except as documented in this note. Current Medications Current Medications Current Medications Medications (Trade) Dose Ordered Sig/Leno Start Time Stop Time Status Last Admin Dose Admin Magnesium Sulfate 50 ml @ As Directed STK-MED ONCE 06/13/19 05:50 06/13/19 05:50 DC Potassium Chloride (Klor-Con) 40 meq 1X ONCE 06/13/19 05:30 06/13/19 05:31 DC 06/13/19 05:52 40 MEQ Allergies Allergies Allergies Coded Allergies Type Severity Reaction Last Updated Verified Penicillins Allergy Intermediate Swelling 11/09/15 Yes aspirin Allergy Intermediate Swelling 11/09/15 Yes azithromycin Allergy Intermediate Swelling 11/09/15 Yes Sulfa (Sulfonamide Antibiotics) Adverse Reaction Intermediate Swelling 11/09/15 Yes amoxicillin Adverse Reaction Intermediate Swelling 11/09/15 Yes Physical Exam Physical Exam Constitutional: Well developed, well nourished, no acute distress, non-toxic appearance. [] HENT: Normocephalic, atraumatic, bilateral external ears normal, oropharynx moist, no oral exudates, nose normal. [] Eyes: PERRLA, EOMI, conjunctiva normal, no discharge. [] Neck: Normal range of motion, no tenderness, supple, no stridor. [] Cardiovascular: sinus tachycardia, regular rhythm, no murmur [] Lungs & Thorax: Bilateral breath sounds clear to auscultation [] Abdomen: Bowel sounds normal, soft, no tenderness, no masses, no pulsatile masses. [] Skin: Warm, dry, no erythema, no rash. [] Back: No tenderness, no CVA tenderness. [] Extremities: No tenderness, no cyanosis, no clubbing, ROM intact, no edema. [] Neurologic: Alert and oriented X 3, normal motor function, normal sensory functi on, no focal deficits noted. [] Psychologic: Affect normal, judgement normal, mood normal. [] Current Patient Data Vital Signs Vital Signs Date Time Temp Pulse Resp B/P (MAP) Pulse Ox O2 Delivery O2 Flow Rate FiO2 06/13/19 04:38 97.6 123 16 186/87 (120) 97 Room Air 97.6 Lab Values Laboratory Tests Test 06/13/19 04:41 06/13/19 05:03 Urine Collection Type Unknown Urine Color Yellow Urine Clarity Clear Urine pH 5.0 Urine Specific [place] 1.010 Urine Protein Negative mg/dL (NEG-TRACE) Urine Glucose (UA) Negative mg/dL (NEG) Urine Ketones (Stick) Negative mg/dL (NEG) Urine Blood Negative (NEG) Urine Nitrite Negative (NEG) Urine Bilirubin Negative (NEG) Urine Urobilinogen Dipstick 0.2 mg/dL (0.2 mg/dL) Urine Leukocyte Esterase Trace (NEG) Urine RBC 0 /HPF (0-2) Urine WBC 5-10 /HPF (0-4) Urine Squamous Epithelial Cells Few /LPF Urine Bacteria 0 /HPF (0-FEW) Urine Mucus Slight /LPF Urine Opiates Screen Neg (NEG) Urine Methadone Screen Neg (NEG) Urine Barbiturates Neg (NEG) Urine Phencyclidine Screen Neg (NEG) Urine Amphetamine/Methamphetamine Neg (NEG) Urine Benzodiazepines Screen Neg (NEG) Urine Cocaine Screen Neg (NEG) Urine Cannabinoids Screen Neg (NEG) Urine Ethyl Alcohol Neg (NEG) White Blood Count 5.7 x10^3/uL (4.0-11.0) Red Blood Count 5.13 x10^6/uL (3.50-5.40) Hemoglobin 15.1 g/dL (12.0-15.5) Hematocrit 45.3 % (36.0-47.0) Mean Corpuscular Volume 88 fL (79-100) Mean Corpuscular Hemoglobin 30 pg (25-35) Mean Corpuscular Hemoglobin Concent 34 g/dL (31-37) Red Cell Distribution Width 14.8 % (11.5-14.5) H Platelet Count 224 x10^3/uL (140-400) Neutrophils (%) (Auto) 68 % (31-73) Lymphocytes (%) (Auto) 21 % (24-48) L Monocytes (%) (Auto) 9 % (0-9) Eosinophils (%) (Auto) 1 % (0-3) Basophils (%) (Auto) 1 % (0-3) Neutrophils # (Auto) 3.9 x10^3/uL (1.8-7.7) Lymphocytes # (Auto) 1.2 x10^3/uL (1.0-4.8) Monocytes # (Auto) 0.5 x10^3/uL (0.0-1.1) Eosinophils # (Auto) 0.0 x10^3/uL (0.0-0.7) Basophils # (Auto) 0.0 x10^3/uL (0.0-0.2) Sodium Level 143 mmol/L (136-145) Potassium Level 3.1 mmol/L (3.5-5.1) L Chloride Level 104 mmol/L (98-107) Carbon Dioxide Level 32 mmol/L (21-32) Anion Gap 7 (6-14) Blood Urea Nitrogen 14 mg/dL (7-20) Creatinine 1.0 mg/dL (0.6-1.0) Estimated GFR (Cockcroft-Gault) 68.0 BUN/Creatinine Ratio 14 (6-20) Glucose Level 105 mg/dL (70-99) H Calcium Level 9.8 mg/dL (8.5-10.1) Magnesium Level 1.6 mg/dL (1.8-2.4) L Total Bilirubin 0.5 mg/dL (0.2-1.0) Aspartate Amino Transferase (AST) 21 U/L (15-37) Alanine Aminotransferase (ALT) 22 U/L (14-59) Alkaline Phosphatase 95 U/L (46-116) Troponin I Quantitative < 0.017 ng/mL (0.000-0.055) QK-Tgl-B-Type Natriuretic Peptide 50 pg/mL (0-124) Total Protein 7.3 g/dL (6.4-8.2) Albumin 3.8 g/dL (3.4-5.0) Albumin/Globulin Ratio 1.1 (1.0-1.7) Laboratory Tests 06/13/19 05:03 Laboratory Tests 06/13/19 05:03 EKG EKG EKG was done and read at 520, heart rate 105 beats per minute, sinus tachycardia , no ST segment elevation. Radiology/Procedures Radiology/Procedures [] Course & Med Decision Making Course & Med Decision Making Pertinent Labs and Imaging studies reviewed. (See chart for details) Patient is a 64-year-old female who was evaluated in the ER today due to anxiety. Patient was found to have low potassium and low magnesium. Patient was given potassium and magnesium in the ER, she felt much better. Patient denies any chest pain, no trouble breathing. Patient will be discharged home later. Dragon Disclaimer Dragon Disclaimer This electronic medical record was generated, in whole or in part, using a voice recognition dictation system. Departure Departure Impression: Primary Impression: Anxiety Additional Impressions: Heart palpitations Hypokalemia Hypomagnesemia Disposition: HOME, SELF-CARE Condition: STABLE Referrals: GRIFFIN MCCALL MD (PCP) Please call your doctor for follow-up this week. Patient Instructions: Hypokalemia, Hypomagnesemia, Palpitations Additional Instructions: Thank you for visiting our Emergency Department. We appreciate you trusting us with your care. If any additional problems come up don't hesitate to return to visit us. Please follow up with your primary care provider so they can plan additional care if needed and know about the problem that you had. If symptoms worsen come back to the Emergency Department. Any concerning symptoms that start such as chest pain, shortness of air, weakness or numbness on one side of the body, running high fevers or any other concerning symptoms return to the ER. Problem Qualifiers JULIANE MARRERO DO Jun 13, 2019 06:11
[2019-06-13 07:30] VITALS: BP 149/67
== END 2019-06-13 07:55 | disposition home or self-care (01) ==
LOC: ER 04:34
DX: F41.9 Anxiety disorder, unspecified (principal); R00.2 Palpitations; E87.6 Hypokalemia; E83.42 Hypomagnesemia; I10 Essential (primary) hypertension; J44.9 Chronic obstructive pulmonary disease, unspecified; F43.10 Post-traumatic stress disorder, unspecified; F17.200 Nicotine dependence, unspecified, uncomplicated; Z88.0 Allergy status to penicillin; Z88.1 Allergy status to other antibiotic agents; Z88.2 Allergy status to sulfonamides; Z88.6 Allergy status to analgesic agent
CPT/HCPCS: 36415; 80053; 80307; 81001; 83735; 83880; 84484; 85025; 85610; 85730; 87086; 93005; 96365; 96366; 99285; J3475

== ENCOUNTER 2020-10-22 03:20 | Emergency (ER) | payer MEDICARE, MEDICAID ==
[~2020-10-22] VITALS: Ht 162.6 cm; Wt 68.2 kg
[~2020-10-22 03:20] MED LIST changes: +AMLO-186 PO; -AMLO5TAB10 PO; -ASPI-612 PO; +ASPI-886 PO; +LISI10TA16 PO; -LISI10TA2 PO
[2020-10-22] MEDS ORDERED: ALPRAZolam 0.5 MG TABLET PO ONE (04:00)
[2020-10-22] MEDS ORDERED: HYDR25TA PO (05:38)
--- NOTE | 2020-10-22 05:38 | PHYS DOC ---
Past Medical History Past Medical History: Anxiety, COPD, Hypertension, Pneumonia Additional Past Medical Histor: PTSD Past Surgical History: Other Additional Past Surgical Histo: RIGHT SHOULDER Smoking Status: Current Every Day Smoker Alcohol Use: None Drug Use: None General Adult EDM: Chief Complaint: ANXIETY/PANIC ATTACK HPI: HPI: 65-year-old AA F past medical history of hypertension, COPD on 3 L anxiety, presents the ED with complaints of increased anxiety with shortness of breath, breathing rapidly, after patient was in argument regarding her nephew staying the night at her home. Patient was encouraged to come to the emergency department due to hyperventilation on the scene. Patient thought she took her anxiety medication prior to come to the ED but is unsure. Review of Systems: Review of Systems: Constitutional: Denies fever or chills. [] Eyes: Denies change in visual acuity. [] HENT: Denies nasal congestion or sore throat. [] Respiratory: Denies cough or shortness of breath or hemoptysis Cardiovascular: Denies chest pain or edema. [] GI: Denies nausea, vomiting, : Denies dysuria or hematuria Musculoskeletal: Denies back pain or joint pain. [] Integument: Denies rash or diaphoresis Neurologic: Denies headache, focal weakness or sensory changes. [] Psychiatric: Denies depression or suicidal or homicidal ideations Heart Score: C/O Chest Pain: No Risk Factors: Risk Factors: DM, Current or recent (<one month) smoker, HTN, HLP, family h istory of CAD, obesity. Risk Scores: Score 0 - 3: 2.5% MACE over next 6 weeks - Discharge Home Score 4 - 6: 20.3% MACE over next 6 weeks - Admit for Clinical Observation Score 7 - 10: 72.7% MACE over next 6 weeks - Early Invasive Strategies Current Medications: Current Medications Medications (Trade) Dose Ordered Sig/Leno Start Time Stop Time Status Last Admin Dose Admin Alprazolam (Xanax) 1 mg 1X ONCE 10/22/20 04:00 10/22/20 04:01 DC 10/22/20 03:57 1 MG Allergies: Allergies: Allergies Coded Allergies Type Severity Reaction Last Updated Verified Penicillins Allergy Intermediate Swelling 11/09/15 Yes aspirin Allergy Intermediate Swelling 11/09/15 Yes azithromycin Allergy Intermediate Swelling 11/09/15 Yes Sulfa (Sulfonamide Antibiotics) Adverse Reaction Intermediate Swelling 11/09/15 Yes amoxicillin Adverse Reaction Intermediate Swelling 11/09/15 Yes Physical Exam: PE: Constitutional: Well developed, no acute distress, HENT: Normocephalic, atraumatic, Eyes: EOMI, conjunctiva normal, no discharge. Neck: Normal range of motion, supple, Cardiovascular: S1/2 present, regular rhythm Lungs & Thorax: Speaking in full sentences, bilateral equal chest rise, no tachypnea or increased work of breathing, on 3 L nasal cannula Abdomen: soft, no tenderness, Skin: Warm, dry, Back: No tenderness, no CVA tenderness. [] Extremities: No tenderness, no cyanosis, no lower extremity edema Neurologic: Alert and oriented X 3, no focal deficits noted. [] Psychologic: Affect normal, judgement normal, anxious EKG: EKG: [] Radiology/Procedures: Radiology/Procedures: [] Course & Med Decision Making: Course & Med Decision Making Pertinent Labs and Imaging studies reviewed. (See chart for details) Concern for anxiety in a stressful situation-states she doesn't trust her nephew but feels safe to return home. Anxiety improved with no chest pain, or increased work of breathing. Pt with no homicidal or suicidal ideations, is not a danger to herself or others. Will discharge home with strict ED return precautions were given for chest pain, syncope, neurologic deficits or dyspnea. Encouraged urgent outpatient follow-up with PMD and psych. Life-threatening processes were considered but are low suspicion at this time, given history, physical exam and ED workup. Pt was educated on all prescription medications and adverse effects. All patient's questions were answered and pt was stable at time of discharge. Life/limb-threatening differential includes but is not limited to, end organ damage/sepsis, trauma/abuse/neglect, neurologic deficit, alcohol/drug ingestion, toxidrome, suicidal/homicidal ideations plans or attempts, psychosis or mental illness resulting in self neglect and inability to care for self. I have spoken with the patient and/or caregivers. I explained the patient's condition, diagnoses and treatment plan based on the information available to me at this time. I have answered the patient and/or caregiver's questions and addressed any concerns. The patient and/or caregivers have a good understanding of patient's diagnosis, condition and treatment plan as can be expected at this point. Vital signs have been stable. Patient's condition is stable and appropriate for discharge from the emergency department. Patient will pursue further outpatient evaluation with primary care physician or other designated or consulting physician as outlined in the discharge instru ctions. The patient and/or caregivers are agreeable to this plan of care and follow-up instructions have been explained in detail. The patient and/or caregivers have received these instructions in written form and have expressed an understanding of the discharge instructions. The patient and/or caregivers are aware that any significant change of condition or worsening of symptoms should prompt immediate return to this or the closest emergency department or call to 911. Howard Disclaimer: Runa Disclaimer: This electronic medical record was generated, in whole or in part, using a voice recognition dictation system. Departure Departure Impression: Primary Impression: Anxiety Disposition: HOME / SELF CARE / HOMELESS Condition: STABLE Referrals: GRIFFIN MCCALL MD (PCP) Follow-up with your primary care physician in 24 to 48 hours OR FOLLOW UP WITH FAMILY MEDICINE: [address] [facility], [address] [place] [address] Patient Instructions: Anxiety and Panic Attacks Additional Instructions: FOLLOW UP WITH PSYCHIATRY: FOR DEFINITIVE MANAGEMENT Dr. Micky Littlejohn Psychiatry Specialist [address] [place], [place] [address] EMERGENCY DEPARTMENT GENERAL DISCHARGE INSTRUCTIONS Thank you for coming to [facility] Emergency Department (ED) today and trusting us with you care. We trust that you had a positive experience in our Emergency Department. If you wish to speak to the department management, you may call the Director at [phone]. YOUR FOLLOW UP INSTRUCTIONS ARE FOLLOWS: 1. Do you have a private Doctor? If you do not have a private doctor, please ask for a resource list of physicians or clinics that may be able to assist you with follow up care. 2. The Emergency Physicain has interpreted your x-rays. The X-Ray specialist will also review them. If there is a change in the findings, you will be notified in 48 hours when at all possible. 3. A lab test or culture has been done, your results will be reviewed and you will be notified if you need a change in treatment. ADDITIONAL INSTRUCTIONS AND INFORMATION: 1. Your care today has been supervised by a physician who is specially trained in emergency care. Many problems require more than one evaluation for a complete diagnosis and treatment. We recommend that you schedule your follow up appointment as recommended to ensure complete treatment of you illness or injury. If you are unable to obtain follow up care and continue to have a problem, or if your condition worsens, we recommend that you return to the ED. 2. We are not able to safely determine your condition over the phone nor are we able to give sound medical advice over the phone. For these safety reasons, if you call for medical advice we will ask you to come to the ED for further evaluation. 3. If you have any questions regarding these discharge instructions please call the ED at [phone]. SAFETY INFORMATION: In the interest of safety, wellness, and injury prevention; we encourage you to wear your sealbelt, if you smoke; quite smoking, and we encourage family to use a protective helmet for bicycling and other sporting events that present an increased risk for head injury. IF YOUR SYMPTOMS WORSEN OR NEW SYMPTOMS DEVELOP, OR YOU HAVE CONCERNS ABOUT YOUR CONDITION; OR IF YOUR CONDITION WORSENS WHILE YOU ARE WAITING FOR YOUR FOLLOW UP APPOINTMENT; EITHER CONTACT YOUR PRIMARY CARE DOCTOR, THE PHYSICIAN WHOSE NAME AND NUMBER YOU WERE GIVEN, OR RETURN TO THE ED IMMEDIATELY. Scripts Hydroxyzine Hcl (HYDROXYZINE HCL) 25 Mg Tablet 1 TAB PO TID PRN for itching, #20 TAB Prov: DOROTHY PEREZ DO 10/22/20 DOROTHY PEREZ DO Oct 22, 2020 05:38
[2020-10-22 05:54] VITALS: BP 143/79
== END 2020-10-22 06:00 | disposition home or self-care (01) ==
LOC: ER 03:20
DX: F41.9 Anxiety disorder, unspecified (principal); R06.02 Shortness of breath; J44.9 Chronic obstructive pulmonary disease, unspecified; I10 Essential (primary) hypertension; F17.200 Nicotine dependence, unspecified, uncomplicated; Z88.0 Allergy status to penicillin; Z88.1 Allergy status to other antibiotic agents; Z88.2 Allergy status to sulfonamides; Z88.6 Allergy status to analgesic agent
CPT/HCPCS: 99283

== ENCOUNTER 2021-07-05 21:10 | Emergency (ER) | payer MEDICARE, MEDICAID ==
[~2021-07-05] VITALS: Ht 160 cm; Wt 77.3 kg
[~2021-07-05 21:10] MED LIST changes: +DOCU-148 PO; -DOCU-153 PO; +HYDR25TA PO
--- NOTE | 2021-07-05 22:51 | PHYS DOC ---
Past Medical History Past Medical History: Anxiety, COPD, Hypertension, Pneumonia Additional Past Medical Histor: PTSD Past Surgical History: Other Additional Past Surgical Histo: RIGHT SHOULDER Smoking Status: Current Every Day Smoker Alcohol Use: None Drug Use: None General Adult EDM: Chief Complaint: MULTIPLE COMPLAINTS HPI: HPI: Patient is a 66 year old female with past medical history of COPD on 3 L nasal cannula Presents for evaluation of palpitation associated with shortness of breath and chest discomfort. Patient states symptoms been ongoing for the last 3 days. Patient states around 1800 hrs. she took her pulse and noted it to be in the 140s. At that time patient states she felt short of breath had some chest discomfort and felt some discomfort in her left arm. Patient states over the last several days heart rate has been fluctuating from fast to slow. Patient's heart rate currently now with heart rate in the 80s. In triage patient's heart rate was 119. Patient was also concerned about her blood pressure. States her blood pressure has been high. Patient's systolic blood pressure in triage was 105. Review of Systems: Review of Systems: Constitutional: Denies fever or chills. [] Eyes: Denies change in visual acuity. [] HENT: Denies nasal congestion or sore throat. [] Respiratory: Denies cough Positive shortness of breath Cardiovascular: Denies chest pain or edema. [Positive palpitations] GI: Denies abdominal pain, nausea, vomiting, bloody stools or diarrhea. [] : Denies dysuria. [] Musculoskeletal: Denies back pain or joint pain. [] Integument: Denies rash. [] Neurologic: Denies headache, focal weakness or sensory changes. [] Endocrine: Denies polyuria or polydipsia. [] Lymphatic: Denies swollen glands. [] Psychiatric: Denies depression or anxiety. [] Heart Score: C/O Chest Pain: N/A Risk Factors: Risk Factors: DM, Current or recent (<one month) smoker, HTN, HLP, family hist ory of CAD, obesity. Risk Scores: Score 0 - 3: 2.5% MACE over next 6 weeks - Discharge Home Score 4 - 6: 20.3% MACE over next 6 weeks - Admit for Clinical Observation Score 7 - 10: 72.7% MACE over next 6 weeks - Early Invasive Strategies Allergies: Allergies: Allergies Coded Allergies Type Severity Reaction Last Updated Verified Penicillins Allergy Intermediate Swelling 11/09/15 Yes aspirin Allergy Intermediate Swelling 11/09/15 Yes azithromycin Allergy Intermediate Swelling 11/09/15 Yes Sulfa (Sulfonamide Antibiotics) Adverse Reaction Intermediate Swelling 11/09/15 Yes amoxicillin Adverse Reaction Intermediate Swelling 11/09/15 Yes Physical Exam: PE: Constitutional: Well developed, well nourished, no acute distress, non-toxic appearance. [] HENT: Normocephalic, atraumatic, bilateral external ears normal, oropharynx moist, no oral exudates, nose normal. [] Eyes: PERRLA, EOMI, conjunctiva normal, no discharge. [] Neck: Normal range of motion, no tenderness, supple, no stridor. [] Cardiovascular:Heart rate regular rhythm, no murmur [] Lungs & Thorax: Bilateral breath sounds clear to auscultation [] Abdomen: Bowel sounds normal, soft, no tenderness, no masses, no pulsatile masses. [] Skin: Warm, dry, no erythema, no rash. [] Back: No tenderness, no CVA tenderness. [] Extremities: No tenderness, no cyanosis, no clubbing, ROM intact, no edema. [] Neurologic: Alert and oriented X 3, normal motor function, normal sensory function, no focal deficits noted. [] Psychologic: Affect normal, judgement normal, mood normal. [] Current Patient Data: Vital Signs: Vital Signs Date Time Temp Pulse Resp B/P (MAP) Pulse Ox O2 Delivery O2 Flow Rate FiO2 07/05/21 21:45 98.3 119 22 105/62 (76) 99 98.3 EKG: EKG: Performed at 2349 Rate 93 Normal sinus rhythm No ST elevation No ST depression No acute AR [] Radiology/Procedures: Radiology/Procedures: [] Course & Med Decision Making: Course & Med Decision Making Pertinent Labs and Imaging studies reviewed. (See chart for details) [] Patient was evaluated for chief complaint. Patient on heart rate monitor no episodes of tachycardia while in the department. EKG without acute ischemic changes. Patient's blood pressure not severely elevated she did not require antihypertensives in the emergency department. Patient's chest x-ray within normal limits. Patient will be discharged home with instructions to follow-up with her primary care physician Howard Disclaimer: Howard Disclaimer: This electronic medical record was generated, in whole or in part, using a voice recognition dictation system. Departure Departure Impression: Primary Impression: Palpitation Additional Impression: Hypokalemia Disposition: HOME / SELF CARE / HOMELESS Condition: STABLE Referrals: GRIFFIN MCCALL MD (PCP) Patient Instructions: Hypokalemia, Palpitations Scripts Potassium Chloride (POTASSIUM CHLORIDE ) 20 Meq Tablet.er 20 MEQ PO DAILY for SUPPLEMENT, #20 TAB.SR Prov: ISRAEL LAWRENCE DO 07/06/21 ISRAEL LAWRENCE DO Jul 05, 2021 22:51
--- NOTE | 2021-07-05 22:53 | RAD ---
EXAM: CHEST 1 VIEW History: Palpitations COMPARISON: 05/14/2019 TECHNIQUE: Single portable radiograph of the chest FINDINGS: The cardiac silhouette is unremarkable. Minimal prominent bilateral interstitial lung velasquez ings likely chronic interstitial changes similar to prior exam.The costophrenic sulci are clear and w ell demarcated. IMPRESSION: No acute cardiopulmonary findings. Electronically signed by: Radu Goetz MD (07/05/2021 10:51 PM) [id number]
[2021-07-05 23:39] LABS: BASO % 1 % (0-3); EOS % 0 % (0-3); HEMATOCRIT 38.2 % (36.0-47.0); HEMOGLOBIN 12.1 g/dL (12.0-15.5); LYMPH # 1.3 x10^3/uL (1.0-4.8); LYMPH % 26 % (24-48); MEAN CORPUSCULAR HEMOGLOBIN 27 pg (25-35); MEAN CORPUSCULAR HGB CONC 32 g/dL (31-37); MEAN CORPUSCULAR VOLUME 86 fL (79-100); MONO # 0.5 x10^3/uL (0.0-1.1); MONO % 9 % (0-9); NEUT # 3.1 x10^3/uL (1.8-7.7); NEUT % 64 % (31-73); PLATELET COUNT 255 x10^3/uL (140-400); RED BLOOD COUNT 4.45 x10^6/uL (3.50-5.40); RED CELL DISTRIBUTION WIDTH 14.6 % (11.5-14.5); WHITE BLOOD COUNT 4.9 x10^3/uL (4.0-11.0)
[2021-07-05 23:51] LABS: CALCIUM 9.7 mg/dL (8.5-10.1); CREATININE 0.9 mg/dL (0.6-1.0); GFR 76.3; POTASSIUM 3.3 mmol/L (3.5-5.1)
[2021-07-05 23:57] LABS: ALBUMIN 3.9 g/dL (3.4-5.0); ALBUMIN/GLOBULIN RATIO 0.8 (1.0-1.7); TOTAL BILIRUBIN 0.4 mg/dL (0.2-1.0); TOTAL PROTEIN 8.5 g/dL (6.4-8.2)
[2021-07-06] MEDS ORDERED: POTA20TA4 PO (00:17)
[2021-07-06 02:59] VITALS: BP 163/82
--- NOTE | 2021-07-06 07:15 | EKG ---
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
== END 2021-07-06 03:15 | disposition home or self-care (01) ==
LOC: ER 21:10
DX: R00.2 Palpitations (principal); E87.6 Hypokalemia; R06.02 Shortness of breath; R07.89 Other chest pain; J44.9 Chronic obstructive pulmonary disease, unspecified; I10 Essential (primary) hypertension; F43.10 Post-traumatic stress disorder, unspecified; F41.9 Anxiety disorder, unspecified; F17.200 Nicotine dependence, unspecified, uncomplicated; Z88.0 Allergy status to penicillin; Z88.1 Allergy status to other antibiotic agents; Z88.2 Allergy status to sulfonamides; Z88.6 Allergy status to analgesic agent
CPT/HCPCS: 36415; 71045; 80053; 83880; 84484; 85025; 93005; 99285-25